=== PATIENT | female | born 1980 | race Native Hawaiian/Other Pacific Islander ===

== ENCOUNTER 2022-08-04 10:53 | Outpatient (CLI) | payer BC, OTHER ==
[~2022-08-04 10:53] MED LIST: LEVO0.1224 PO
== END 2022-08-04 19:03 | disposition home or self-care (01) ==
LOC: MAMMO 10:53
PROVIDERS: ATTEND Internal Medicine
DX: Z12.31 Encounter for screening mammogram for malignant neoplasm of breast (principal)